=== PATIENT | female | born 1985 | race Caucasian/White ===

== ENCOUNTER 2020-01-13 02:19 | Inpatient (IN) ==
[2020-01-13] MEDS ORDERED: OXYTOCIN 30 UNITS/500 ML BAG IV PRN ×2 (03:03→18:34)
--- NOTE | 2020-01-13 03:06 | History & Physical Report ---
Date of Service January 13, 2020 Assessment & Plan (1) Two vessel umbilical cord, antepartum, single gestation: (2) PROM (premature rupture of membranes): Patient desires an unmedicated , noninterventional . gbs neg. Will allow expectant management for now. Fetus is overall category one. anticipate . History of Present Illness Primary Care Provider: NO PCP Patient is a 34yowf who presents to labor and delivery with complaints of gross rom at 11:40pm. Noting some contractions but not signficant. no lof/vb. +fm complicated by 2vc with normal growth scans and nsts, nl echo. labs--O-/ab-/ri/rprnr/hepb-/hiv-/gc/ct-/ declined cf/sma/genetics/ nl 16 week gtt, failed 28 week with nl 2 hr/gbs neg Allergies Allergy/AdvReac Type Severity Reaction Status Date / Time No Known Allergies Allergy Verified 01/11/20 13:04 Home Medications Home Medications Medication Instructions Recorded Confirmed Type 21-iron fu-folic acid 1 cap PO DAILY 06/16/19 01/11/20 History Patient History Medical History Abnormal biochemical finding on screening of mother Encounter for anatomic survey Varicella Surgical History S/P wisdom tooth extraction Family History Uncle Heart disease Grandfather (Paternal) Heart disease Mother Osteoporosis Jaundice Social History Preferred Language: [place] Communication Ability: Effective 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 Beliefs That Will Affect Care: None marital status: marital status details: Filiberto Taylor (33) [phone] Current Living Situation: Spouse current occupational status: employed Other Information That Helps Us Care for You: No Feels Safe at Home: Yes Safety Concerns: Afraid for Self Smoking Status: Never smoker Hx Alcohol Use: No Hx Substance Use: No OB History g1--current [employer] History no std, abnl paps Review of Systems as per Subjective / HPI Physical Exam Constitutional: WD/WN, vitals as above Gastrointestinal (Abdomen): soft, gravid, nt Psychiatric: A+Ox3, euthymic affect Genitourinary: sse--+f/n/small pool cx--1.5/80/-2 toco--q5-8min efm--145 with mod variability, small accels, rare variable Results & Data Vital Signs (Past 12 Hours) Vital Signs Pulse Resp BP 01/13/20 02:35 18 01/13/20 02:31 86 119/68 Code Status & VTE Plan VTE Prophylaxis Plan VTE Prophylaxis will be ordered: No Coding Level of Care Code None Diagnoses Two vessel umbilical cord, antepartum, single gestation O09.899 PROM (premature rupture of membranes) O42.90
[2020-01-13 03:47] LABS: Hematocrit (blood only) 37.3 % (37-47); Hemoglobin 12.7 g/dL (12.0-16.0); Mean Corpuscular Hemoglobin 29.7 pg (25-34); Mean Corpuscular Volume 87.1 fL (80-100); Mean Platelet Volume 10.6 fL (7.4-10.4); Platelet Count 278 K/uL (130-400); RDW Coefficient of Variation 13.6 % (11.5-14.5); RDW Standard Deviation 43.3 fL (36.4-46.3); Red Blood Count 4.28 M/uL (4.2-5.4); White Blood Count 12.64 K/uL (4.8-10.8)
--- NOTE | 2020-01-13 07:10 | Labor Progress Brief Note ---
Date of Service January 13, 2020 Subjective noting contractions seem to be getting stronger Assessment & Plan (1) PROM (premature rupture of membranes): fetus category one. As she is now 8 hours out from rupture, I discussed that it is my typical practice to start pitocin as have no idea when her contractions will set in. Discussed we like to get delivered within 24 hrs as risk of infection starts to increase. However, also discussed that there is no reason absolutely have to start at this point. She wishes continued expectant management. Will walk and then will sign out with dr. Khan. Physical Exam Constitutional: WD/WN, vitals as above Psychiatric: A+Ox3, euthymic affect Genitourinary: cx--deferred toco--irregular 4-8min efm--category one strip Results & Data Vital Signs (Past 12 Hours) Vital Signs Temp Pulse Resp BP 01/13/20 06:50 79 118/75 01/13/20 06:37 36.4 C L 8 L 01/13/20 04:49 36.5 C 18 01/13/20 02:35 18 01/13/20 02:31 36.5 C 86 18 119/68 Coding Level of Care Code None Diagnoses PROM (premature rupture of membranes) O42.90
--- NOTE | 2020-01-13 11:38 | Labor Progress Brief Note ---
Date of Service January 13, 2020 Patient had PROM at 11:30pm last night. Mild CTX at this stage. Per discussion at 9:00am, I had discussed augmentation. Disc reasons why, including reduction of infection. At this stage she wises to avoid intervention, but agrees to be checked at noon today and then make a decision Results & Data Vital Signs (Past 12 Hours) Vital Signs Temp Pulse Resp BP 01/13/20 11:08 78 114/78 01/13/20 11:00 97.5 F L 16 01/13/20 08:57 98.2 F 18 01/13/20 07:31 97.7 F 88 16 125/70 01/13/20 06:50 79 118/75 01/13/20 06:37 97.5 F L 8 L 01/13/20 04:49 97.7 F 18 01/13/20 02:35 18 01/13/20 02:31 97.7 F 86 18 119/68 Coding Level of Care Code None
[2020-01-13] MEDS: LACTATED RINGER'S 1,000 ML IV PRN ×3 (11:58→19:49)
--- NOTE | 2020-01-13 12:19 | Labor Progress Brief Note ---
Date of Service January 13, 2020 Patient placed on monitor after ambulating and there was the appearance of deep decels with CTX. Good variability, however Increased baseline as well. Deep decels with Cx still at 1.5cm 50%, not ideal. Discussed C/S as possibility Results & Data Vital Signs (Past 12 Hours) Vital Signs Temp Pulse Resp BP 01/13/20 11:08 78 114/78 01/13/20 11:00 97.5 F L 16 01/13/20 08:57 98.2 F 18 01/13/20 07:31 97.7 F 88 16 125/70 01/13/20 06:50 79 118/75 01/13/20 06:37 97.5 F L 8 L 01/13/20 04:49 97.7 F 18 01/13/20 02:35 18 01/13/20 02:31 97.7 F 86 18 119/68 Coding Level of Care Code None
--- NOTE | 2020-01-13 13:06 | Obstetrical Progress Note ---
Date of Service January 13, 2020 Subjective Decels cont with mild CTX. Discussed that Cx only 1cm and CTX would need to be much stronger. Pitocin not appropriate at this stage as still decelling. I have recommended C/S section. The patient was counseled to the nature of the procedure including alternatives such as labor. Risks were discussed including bleeding infection injury to bowel bladder ureter vessels and even baby. Deep Vein thrombosis, pulmonary embolus discussed. Breakdown of incision reviewed. Deep vein thrombosis pulmonary embolus hernia and failure of the incision to heal were discussed Patient verbalized understanding of this and was given ample time to ask questions Results & Data Vital Signs (Past 12 Hours) Vital Signs Temp Pulse Resp BP 01/13/20 11:08 78 114/78 01/13/20 11:00 97.5 F L 16 01/13/20 08:57 98.2 F 18 01/13/20 07:31 97.7 F 88 16 125/70 01/13/20 06:50 79 118/75 01/13/20 06:37 97.5 F L 8 L 01/13/20 04:49 97.7 F 18 01/13/20 02:35 18 01/13/20 02:31 97.7 F 86 18 119/68 PG Care Time/CCT Total # of Minutes Spent Total Time Spent with Patient: Total time spent is greater than 50% in coordination of care (as documented) at patient's floor/unit and/or counseling patient: Coding Level of Care Code None
[2020-01-13] MEDS ORDERED: CITRIC ACID/SODIUM CITRATE 15 ML UDC ONE (13:13)
[2020-01-13] MEDS ORDERED: MoRPHine SULFATE PF 1 MG/ML 10 ML AMP/VIAL ONE ×2 (13:14→19:51)
[2020-01-13] MEDS ORDERED: LACTATED RINGER'S 1,000 ML IV SCH ×2 (13:15→21:00)
--- NOTE | 2020-01-13 13:20 | Anesthesiology Consultation ---
Date of Service January 13, 2020 Assessment & Plan Chart Review Chart Review: Acceptable Risk for Surgery Consults Requested none History Surgery Operation Date: 01/13/20 13:20 Proposed Procedures p Section in LD - Krystina. Oniel Khan MD, FACOG Height/Weight Height: 5 ft 6 in Weight: 83.007 kg Allergies Allergy/AdvReac Type Severity Reaction Status Date / Time No Known Allergies Allergy Verified 01/11/20 13:04 Medications Home Medications Medication Instructions Recorded Confirmed Last Taken 21-iron fu-folic acid 1 cap PO DAILY 06/16/19 01/11/20 01/12/20 08:00 Active Medications Generic Name Dose Route Start Last Admin Trade Name Freq PRN Reason Stop Dose Admin Lactated Ringer's 1,000 mls @ 125 mls/hr 01/13/20 03:03 01/13/20 13:15 Lr IV 01/15/20 03:02 999 mls/hr .Q8H PRN Administration L&D Protocol Protocol Past Medical History Medical History Abnormal biochemical finding on screening of mother Encounter for anatomic survey Varicella Past Family History Family History Uncle Heart disease Grandfather (Paternal) Heart disease Mother Osteoporosis Jaundice Past Surgical History Surgical History S/P wisdom tooth extraction Social History Smoking Status: Never smoker Hx Alcohol Use: No Hx Substance Use: No Physical Exam Vital Signs Last Vital Signs Temp 36.4 C L 01/13/20 11:00 Pulse 78 01/13/20 11:08 Resp 16 01/13/20 11:00 BP 114/78 01/13/20 11:08 Testing Laboratory Results 01/13/20 03:37
--- NOTE | 2020-01-13 13:31 | Labor Progress Brief Note ---
Date of Service January 13, 2020 Patient had agreed to C/S, but after discussing with a friend on the phone she wishes to wait longer. I discussed that I recommend C/S now, but would of course accept her decisions. Disc the risks to the fetus in delayed delivery if tracing worsens. Results & Data Vital Signs (Past 12 Hours) Vital Signs Temp Pulse Resp BP 01/13/20 11:08 78 114/78 01/13/20 11:00 97.5 F L 16 01/13/20 08:57 98.2 F 18 01/13/20 07:31 97.7 F 88 16 125/70 01/13/20 06:50 79 118/75 01/13/20 06:37 97.5 F L 8 L 01/13/20 04:49 97.7 F 18 01/13/20 02:35 18 01/13/20 02:31 97.7 F 86 18 119/68 Coding Level of Care Code None
--- NOTE | 2020-01-13 13:37 | Labor Progress Brief Note ---
Date of Service January 13, 2020 Patient wishes to wait until 2:35 pm. She wishes to be checked at that time and if no change will accept C/S I discussed concerns with this, she does accept if tracing worsens that we can reevaluate sooner than 2:35 pm Results & Data Vital Signs (Past 12 Hours) Vital Signs Temp Pulse Resp BP 01/13/20 11:08 78 114/78 01/13/20 11:00 97.5 F L 16 01/13/20 08:57 98.2 F 18 01/13/20 07:31 97.7 F 88 16 125/70 01/13/20 06:50 79 118/75 01/13/20 06:37 97.5 F L 8 L 01/13/20 04:49 97.7 F 18 01/13/20 02:35 18 01/13/20 02:31 97.7 F 86 18 119/68 Coding Level of Care Code None
--- NOTE | 2020-01-13 15:05 | Labor Progress Brief Note ---
Date of Service January 13, 2020 Recheck still 1cm, 50% CTX mild and 8' apart. FHR is reactive at this stage (she really isn't in labor as CTX very mild). I am reticent to start Pitocin as mildly more intense CTX earlier resulted in substantial decels. I again have recommended C/S. I discussed why? 1. Risk of infection with prolonged PROM. 2. She is not in labor as no change in cervix, so I'm not sure if waiting has a real benefit at this stage. Patient only 1cm. 3. Worry over placental reserve as minimal CTX resulted in non-reassuring FHR tracing. I discussed the risks in waiting. Long conversation, she strongly prefers no intervention at this time. I discussed ultimately, she is the decider for her health and body in this situation, but that again I RECOMMEND C/S now. She declines and wishes to wait. We discussed that if the FHR tracing were to worsen quickly that the response to C/S is not always possible to be instantaneous as well. She stated understanding. Results & Data Vital Signs (Past 12 Hours) Vital Signs Temp Pulse Resp BP 01/13/20 14:45 98.1 F 16 01/13/20 13:10 98.4 F 18 01/13/20 11:08 78 114/78 01/13/20 11:00 97.5 F L 16 01/13/20 08:57 98.2 F 18 01/13/20 07:31 97.7 F 88 16 125/70 01/13/20 06:50 79 118/75 01/13/20 06:37 97.5 F L 8 L 01/13/20 04:49 97.7 F 18 Coding Level of Care Code None
--- NOTE | 2020-01-13 17:04 | Obstetrical Progress Note ---
Date of Service Note, patient still declines C/S and wishes no intervention at this time. I do not feel she is any form of active labor at this time. We discussed the pitfalls of pitocin as when she did have mildly more active CTX, decles were consistent. FHR reveals occasional variables. Pos accels I asked her what her hope/plan is, she states that she wants her body to be given a chance to do this on it's own. I discussed risks involved as per prior note in delayed intervention. She states she understands. January 13, 2020 Results & Data Vital Signs (Past 12 Hours) Vital Signs Temp Pulse Resp BP 01/13/20 15:04 130 H 120/73 01/13/20 14:45 98.1 F 16 01/13/20 13:10 98.4 F 18 01/13/20 11:08 78 114/78 01/13/20 11:00 97.5 F L 16 01/13/20 08:57 98.2 F 18 01/13/20 07:31 97.7 F 88 16 125/70 01/13/20 06:50 79 118/75 01/13/20 06:37 97.5 F L 8 L PG Care Time/CCT Total # of Minutes Spent Total Time Spent with Patient: Total time spent is greater than 50% in coordination of care (as documented) at patient's floor/unit and/or counseling patient: Coding Level of Care Code None
[2020-01-13] MEDS: CEFAZOLIN 2000MG 2,000 MG/15 ML SYR IV SCH ×2 (18:27→19:45)
--- NOTE | 2020-01-13 18:40 | Labor Progress Brief Note ---
Date of Service January 13, 2020 Patient now is accepting of pitocin. Tracing has improved. I have discussed my concerns with prolonged PROM with inadequate labor pattern. Pitocin had been discussed extensively earlier in the day before the problems with the tracing. I had been hesitant with the problems with the tracing at this time, I discussed that with pitocin that there may be a worsening of the FHR tracing. Patient wishes pitocin. We discussed (again) that we are outside the realm of recommended management from earlier and now (With a worrisome tracing with minimal CTX and unfavorable cervix and my previous and current recommendation of C/S) and that we would still do what we could to support her wishes. She has not accepted the earlier recommendations, but her tracing has improved and I am willing to try to work with her as best I can. Results & Data Vital Signs (Past 12 Hours) Vital Signs Temp Pulse Resp BP 01/13/20 17:10 100 H 134/74 01/13/20 15:04 130 H 120/73 01/13/20 14:45 98.1 F 16 01/13/20 13:10 98.4 F 18 01/13/20 11:08 78 114/78 01/13/20 11:00 97.5 F L 16 01/13/20 08:57 98.2 F 18 01/13/20 07:31 97.7 F 88 16 125/70 01/13/20 06:50 79 118/75 01/13/20 06:37 97.5 F L 8 L Coding Level of Care Code None
--- NOTE | 2020-01-13 19:33 | Labor Progress Brief Note ---
Date of Service January 13, 2020 after starting pitocin at 1mu deep, prolonged 5 minute decel, I have strongly recommended C/S, she agrees Cx 1cm still. Pitocin off Results & Data Vital Signs (Past 12 Hours) Vital Signs Temp Pulse Resp BP 01/13/20 19:09 97.7 F 112 H 18 131/83 01/13/20 17:10 100 H 134/74 01/13/20 17:05 98.2 F 01/13/20 15:04 130 H 120/73 01/13/20 14:45 98.1 F 16 01/13/20 13:10 98.4 F 18 01/13/20 11:08 78 114/78 01/13/20 11:00 97.5 F L 16 01/13/20 08:57 98.2 F 18 Coding Level of Care Code None
[2020-01-13] MEDS ORDERED: NALOXONE HCL 0.4 MG/1 ML VIAL/CARP IV PRN (19:48)
[2020-01-13] MEDS ORDERED: ONDANSETRON INJ 2 MG/ML 2 ML VIAL IV PRN (19:48)
[2020-01-13] MEDS ORDERED: PROMETHAZINE HCL 25 MG in SODIUM CHLORIDE 0.9% 50 ML IV PRN (19:48)
[2020-01-13] MEDS ORDERED: NALBUPHINE HCL INJ 10 MG/ML AMP IV PRN (19:48)
[2020-01-13] MEDS ORDERED: ePHEDrine sulfate 50 MG/ML AMP IV PRN (19:48)
[2020-01-13] MEDS ORDERED: LACTATED RINGER'S 500 ML IV PRN (19:48)
[2020-01-13] MEDS ORDERED: DiphenhydrAMINE HCL 50 MG/ML VIAL IV PRN (19:48)
[2020-01-13] MEDS ORDERED: KETOROLAC 30 MG/ML VIAL IV PRN (19:48)
[2020-01-13] MEDS ORDERED: NALOXONE HCL 1 MG in SODIUM CHLORIDE 0.9% 1000ML 1,000 ML IV PRN (19:48)
[2020-01-13] MEDS ORDERED: NALOXONE HCL 0.08 MG in SYRINGE 1.8 ML IV PRN (19:48)
[2020-01-13] MEDS ORDERED: HYDROmorphone INJ 0.5 MG/0.5 ML SYR IV PRN (19:48)
[2020-01-13] MEDS ORDERED: MoRPHine SULFATE PF 1 MG/ML 10 ML AMP/VIAL INT SPINAL ONE (19:48)
[2020-01-13] MEDS ORDERED: fentaNYL citrate 100 MCG/2 ML VIAL ONE (19:51)
[2020-01-13] MEDS ORDERED: NO NARCOTICS OR SEDATIVES SCH (20:00)
[2020-01-13] MEDS ORDERED: DC INTRASPINAL MORPHINE SCH (20:00)
[2020-01-13] MEDS ORDERED: SODIUM CHLORIDE 0.9% 1000ML 1,000 ML IV SCH (20:00)
[2020-01-13] MEDS ORDERED: CEFAZOLIN 2000MG 2,000 MG/15 ML SYR IV SCH (20:00)
[2020-01-13] MEDS ORDERED: PHENYLEPHRINE 100MCG/ML 5ML SYR ONE (20:06)
[2020-01-13] MEDS ORDERED: OXYTOCIN 10 UNITS/ML VIAL ONE (20:06)
--- NOTE | 2020-01-13 20:44 | Operative Report ---
PG Post Operative Report Pre & Post Diagnosis Operation Date: 01/13/20 13:20 Pre-Op Diagnosis: intolerance to labor Post-Op Diagnosis: intolerance to labor I identified the patient and participated in the time-out.: Yes Procedure Operation Date: 01/13/20 13:20 <No data on this case meets the specified criteria> Surgeon Elizabeth Khan MD, FACOG [employer] Nursing Estimated Blood Loss 500 Findings Consistent with Post-Op Diagnosis Specimens cord gases, blood Description of Procedure Regional anesthetic was given by anesthesia patient had a Blum catheter inserted by nursing patient was prepped and draped in supine position with a leftward tilt preoperative antibiotics were given timeout performed Pickups with teeth were used to test the skin site and it was found adequate for incision scalpel used to make a Pfannenstiel incision cutting down through subcutaneous fat through the fascia fascia was then dissected laterally with the curved Weir's fascia was released superiorly and inferiorly from the rectus muscles with the curved Weir scissors, rectus muscle split peritoneal cavity entered in a superior location. Opening enlarged to allow exposure bladder retractor placed Metzenbaums used to dissect away the bladder flap low segment transverse incision made on the uterus with scalpel entry was done bluntly with the copy center operator's finger hysterotomy incision extended with the copy center operator's finger in the usual fashion baby was delivered then by flexion of the head and pressure from the home based assistant on the abdomen mouth and then nares were suctioned baby was then delivered fully without difficulty without excessive force live vigorous cord clamped and cut cord gases obtained cord blood obtained placenta removed manually within ensured all placenta removed with a moist lap sponge uterus exteriorized IV Pitocin had been started by anesthesia and uterine tone improved. The uterus was closed in 2 layers first layer and 0 Monocryl running locked second layer 0 Monocryl nonlocked after generous irrigation and suction of the cul-de-sac and bladder flap regions hemostasis was excellent uterus was placed back in the peritoneal cavity and hemostasis was excellent rectus muscles were inspected and found to be dry fascia closed with 0 Vicryl subcutaneous fat closed with 3-0 Vicryl prior to this subcutaneous fat was irrigated skin closed with 4-0 subcuticular Monocryl incision Steri-Stripped urine was clear at the end of the procedure. Uterine and adnexal anatomy normal. 2 VC Cord somewhat by body but no nuchal I attest to the content of the Intraoperative Record and any orders documented therein. Any exceptions are noted below.
[2020-01-13] MEDS ORDERED: HYDROCORTISONE ACETATE 25 MG SUPP PR PRN (20:51)
[2020-01-13] MEDS ORDERED: MAGNESIUM HYDROXIDE SUSP 30 ML UDC PO PRN (20:51)
[2020-01-13] MEDS ORDERED: DIPHTHERIA/TETANUS/PERTUSSIS 0.5 ML SYR/VIAL IM ONE (20:51)
[2020-01-13] MEDS ORDERED: SUPERCREAM 0.870% 15 GM JAR EXT PRN (20:51)
[2020-01-13] MEDS ORDERED: BENZOCAINE 20% AER SPR 82.5 GM CAN EXT PRN (20:51)
[2020-01-13] MEDS ORDERED: SENNA 8.6 MG TAB PO PRN (20:51)
[2020-01-13 20:58] LABS: Base Excess Cord Arterial Bld -3.5 mEq/L (-9-1.8); CO2 Cord Arterial Blood 67 mmHg (39.1-73.5); HCO3 Cord Arterial Blood 26 mmol/L (19.7-28.5); pH Cord Arterial Blood 7.21 (7.1-7.38)
[2020-01-13 21:03] LABS: Base Excess Cord Venous Blood -2.9 mEq/L (-7.7-1.9); Cord Venous Blood HCO3 23 mmol/L (18.4-26.8); Cord Venous Blood PCO2 43 mmHg (30.4-57.2); Cord Venous Blood PO2 32 mmHg (14.1-43.3); Cord Venous Blood pH 7.35 (7.20-7.44)
[2020-01-13 21:05] LABS: Oxygen Sat Cord Arterial Blood < 60.0 % (<60); PO2 Cord Arterial Blood < 10 mmHg (4.1-31.7)
[2020-01-13] MEDS: OXYTOCIN 20 UNITS in LACTATED RINGER'S 1,000 ML IV SCH (21:13)
--- NOTE | 2020-01-13 21:57 | Anesthesiology Progress Note ---
Date of Service January 13, 2020 Anesthesia Post Procedure Vital Signs Vital Signs: Temp Pulse Resp BP Pulse Ox 01/13/20 21:53 77 100 01/13/20 21:48 83 99 01/13/20 21:47 83 18 108/62 01/13/20 21:43 76 98 01/13/20 21:40 80 18 110/56 L 01/13/20 21:38 90 99 01/13/20 21:33 82 100 01/13/20 21:28 88 100 01/13/20 21:27 97 H 18 118/64 01/13/20 21:23 87 100 01/13/20 21:18 83 100 01/13/20 21:17 36.3 C L 77 18 107/59 L 01/13/20 21:13 82 98 01/13/20 21:08 78 100 01/13/20 21:07 71 18 100/57 L 01/13/20 21:03 76 100 01/13/20 20:58 76 100 01/13/20 20:57 83 18 99/56 L 01/13/20 20:53 81 100 01/13/20 20:48 79 99 01/13/20 20:47 36.2 C L 75 18 99/57 L 01/13/20 19:44 95 H 100 01/13/20 19:39 92 H 100 01/13/20 19:09 36.5 C 112 H 18 131/83 01/13/20 17:10 100 H 134/74 01/13/20 17:05 36.8 C 01/13/20 15:04 130 H 120/73 01/13/20 14:45 36.7 C 16 01/13/20 13:10 36.9 C 18 01/13/20 11:08 78 114/78 01/13/20 11:00 36.4 C L 16 01/13/20 08:57 36.8 C 18 01/13/20 07:31 36.5 C 88 16 125/70 01/13/20 06:50 79 118/75 01/13/20 06:37 36.4 C L 8 L 01/13/20 04:49 36.5 C 18 01/13/20 02:35 18 01/13/20 02:31 36.5 C 86 18 119/68 Transfer of Care Handoff Completed per policy Notes Mental Status: alert / awake / arousable Patient Amnestic to Procedure: Yes Nausea / Vomiting: adequately controlled Pain: adequately controlled Airway Patency, RR, SpO2: stable & adequate BP & HR: stable & adequate Hydration State: stable & adequate Neuraxial Anesthesia: was administered and sensory block is resolving Anesthetic Complications: no major complications apparent and Pt Satisfied with anesthetic care
[2020-01-14] MEDS: OXYTOCIN 20 UNITS in LACTATED RINGER'S 1,000 ML IV SCH (05:25)
[2020-01-14] MEDS ORDERED: CITRIC ACID/SODIUM CITRATE 15 ML UDC PO SCH (06:00)
[2020-01-14 06:19] LABS: Basophils # (auto) 0.02 K/uL (0-0.2); Basophils % (auto) 0.1 %; Eosinophils # (auto) 0.04 K/uL (0-0.5); Eosinophils % (auto) 0.3 %; Hematocrit (blood only) 34.8 % (37-47); Hemoglobin 11.6 g/dL (12.0-16.0); Immature Granulocytes # (auto) 0.09 K/uL (0.00-0.02); Immature Granulocytes % (auto) 0.7 %; Lymphocytes # (auto) 1.28 K/uL (1.2-3.4); Lymphocytes % (auto) 9.4 %; Mean Corpuscular Hemoglobin 28.9 pg (25-34); Mean Corpuscular Hgb Conc 33.3 g/dL (32-36); Mean Corpuscular Volume 86.8 fL (80-100); Mean Platelet Volume 10.6 fL (7.4-10.4); Monocytes # (auto) 0.92 K/uL (0.11-0.59); Monocytes % (auto) 6.7 %; Neutrophils # (auto) 11.28 K/uL (1.4-6.5); Neutrophils % (auto) 82.8 %; Platelet Count 234 K/uL (130-400); RDW Coefficient of Variation 13.6 % (11.5-14.5); RDW Standard Deviation 43.4 fL (36.4-46.3); Red Blood Count 4.01 M/uL (4.2-5.4); White Blood Count 13.63 K/uL (4.8-10.8)
--- NOTE | 2020-01-14 07:45 | Obstetrical Progress Note ---
Date of Service January 14, 2020 POD 1 Assessment & Plan (1) state: POD #1 Cont current care Subjective Ambulation: limited ambulation Voiding: morris catheter in place Passing Gas:: No Diet Tolerance:: regular diet Lochia:: Small Feeding Type:: breast feeding Current Pain Level(1-10): 2 Physical Exam Constitutional WD/WN, vitals as above Respiratory normal respiratory effort, lungs clear to auscultation Cardiovascular RRR, no murmur, no edema Gastrointestinal (Abdomen) normal bowel sounds, soft, nontender, no hepatosplenomegaly (incision cdi, ext neg) Results & Data Vital Signs (Past 12 Hours) Vital Signs Temp Pulse Pulse Resp BP BP Pulse Ox 01/14/20 05:30 18 98 01/14/20 04:50 16 97 01/14/20 03:30 98.2 F 71 18 112/72 97 01/14/20 02:20 18 98 01/14/20 01:30 18 98 01/14/20 00:50 18 96 01/13/20 23:40 97.5 F L 66 18 118/73 99 01/13/20 23:10 97.5 F L 61 18 106/63 98 01/13/20 22:47 70 116/67 01/13/20 22:43 71 97 01/13/20 22:38 75 98 01/13/20 22:33 79 98 01/13/20 22:28 70 99 01/13/20 22:23 68 98 01/13/20 22:18 75 98 01/13/20 22:17 72 18 111/67 01/13/20 22:13 73 99 01/13/20 22:08 82 91 01/13/20 22:03 86 99 01/13/20 21:58 84 100 01/13/20 21:53 77 100 01/13/20 21:48 83 99 01/13/20 21:47 83 18 108/62 01/13/20 21:43 76 98 01/13/20 21:40 80 18 110/56 L 01/13/20 21:38 90 99 01/13/20 21:33 82 100 01/13/20 21:28 88 100 01/13/20 21:27 97 H 18 118/64 01/13/20 21:23 87 100 01/13/20 21:18 83 100 01/13/20 21:17 97.3 F L 77 18 107/59 L 01/13/20 21:13 82 98 01/13/20 21:08 78 100 01/13/20 21:07 71 18 100/57 L 01/13/20 21:03 76 100 01/13/20 20:58 76 100 01/13/20 20:57 83 18 99/56 L 01/13/20 20:53 81 100 01/13/20 20:48 79 99 01/13/20 20:47 97.2 F L 75 18 99/57 L
[2020-01-14] MEDS: PRENATAL VITAMIN 1 TAB PO SCH (10:18)
[2020-01-14] MEDS: FERROUS SULFATE 325 MG TAB PO SCH (10:18)
[2020-01-14] MEDS: DOCUSATE SODIUM 100 MG CAP PO SCH ×2 (10:18→20:38)
[2020-01-14] MEDS: SIMETHICONE 80 MG CHEW PO SCH ×4 (10:18→20:38)
--- NOTE | 2020-01-14 10:56 | Anesthesiology Progress Note ---
Date of Service January 14, 2020 Anesthesia Post Procedure Vital Signs Vital Signs: Temp Pulse Pulse Resp BP BP Pulse Ox 01/14/20 05:30 18 98 01/14/20 04:50 16 97 01/14/20 03:30 36.8 C 71 18 112/72 97 01/14/20 02:20 18 98 01/14/20 01:30 18 98 01/14/20 00:50 18 96 01/13/20 23:40 36.4 C L 66 18 118/73 99 01/13/20 23:10 36.4 C L 61 18 106/63 98 01/13/20 22:47 70 116/67 01/13/20 22:43 71 97 01/13/20 22:38 75 98 01/13/20 22:33 79 98 01/13/20 22:28 70 99 01/13/20 22:23 68 98 01/13/20 22:18 75 98 01/13/20 22:17 72 18 111/67 01/13/20 22:13 73 99 01/13/20 22:08 82 91 01/13/20 22:03 86 99 01/13/20 21:58 84 100 01/13/20 21:53 77 100 01/13/20 21:48 83 99 01/13/20 21:47 83 18 108/62 01/13/20 21:43 76 98 01/13/20 21:40 80 18 110/56 L 01/13/20 21:38 90 99 01/13/20 21:33 82 100 01/13/20 21:28 88 100 01/13/20 21:27 97 H 18 118/64 01/13/20 21:23 87 100 01/13/20 21:18 83 100 01/13/20 21:17 36.3 C L 77 18 107/59 L 01/13/20 21:13 82 98 01/13/20 21:08 78 100 01/13/20 21:07 71 18 100/57 L 01/13/20 21:03 76 100 01/13/20 20:58 76 100 01/13/20 20:57 83 18 99/56 L 01/13/20 20:53 81 100 01/13/20 20:48 79 99 01/13/20 20:47 36.2 C L 75 18 99/57 L 01/13/20 19:44 95 H 100 01/13/20 19:39 92 H 100 01/13/20 19:09 36.5 C 112 H 18 131/83 01/13/20 17:10 100 H 134/74 01/13/20 17:05 36.8 C 01/13/20 15:04 130 H 120/73 01/13/20 14:45 36.7 C 16 01/13/20 13:10 36.9 C 18 01/13/20 11:08 78 114/78 01/13/20 11:00 36.4 C L 16 Pain Intensity Abdomen: Pain Intensity: 4 Transfer of Care Handoff Completed per policy Notes Mental Status: alert / awake / arousable and participated in evaluation Nausea / Vomiting: adequately controlled Pain: adequately controlled Airway Patency, RR, SpO2: stable & adequate BP & HR: stable & adequate Hydration State: stable & adequate Neuraxial Anesthesia: was administered and sensory block resolved Anesthetic Complications: no major complications apparent and Pt Satisfied with anesthetic care Notes: Patient denies headache this morning. Has been up walking without weakness or residual numbness. Patient encouraged to contact anesthesia for any concerns or new headache
[2020-01-14] MEDS ORDERED: OXYCODONE/ACETAMINOPHEN 5mg/325mg TAB PO PRN (13:48)
[2020-01-14] MEDS ORDERED: ONDANSETRON INJ 2 MG/ML 2 ML VIAL IV PRN (13:48)
[2020-01-14] MEDS ORDERED: KETOROLAC 30 MG/ML VIAL IV PRN (13:48)
[2020-01-14] MEDS ORDERED: DiphenhydrAMINE HCL 50 MG/ML VIAL IV PRN (13:48)
[2020-01-14] MEDS ORDERED: PROMETHAZINE HCL 25 MG in SODIUM CHLORIDE 0.9% 50 ML IV PRN (13:48)
[2020-01-14] MEDS: IBUPROFEN 600 MG TAB PO PRN ×2 (14:33→20:38)
[2020-01-14] MEDS ORDERED: bisacodyL 5 MG TABEC PO SCH (20:00)
[2020-01-15 06:37] LABS: Hematocrit (blood only) 33.5 % (37-47); Hemoglobin 11.1 g/dL (12.0-16.0)
--- NOTE | 2020-01-15 06:47 | Obstetrical Progress Note ---
Date of Service January 15, 2020 Assessment & Plan (1) state: satisfactory /post-op progress continue current care plan Day #:: 2 Subjective Ambulation: ambulating normally Voiding: no voiding problems Passing Gas:: Yes Diet Tolerance:: regular diet Lochia:: Small Feeding Type:: breast feeding Review of Systems All systems reviewed & are unremarkable except as noted in HPI & below Physical Exam Constitutional WD/WN, vitals as above Gastrointestinal (Abdomen) Inspection/Auscultation: + abdominal surgical incision (intact & dry) Psychiatric A+Ox3, euthymic affect Genitourinary OB Exam Abdomen: + fundal height Fundus: + firm and + relation to umbilicus ( below u) Results & Data Vital Signs (Past 12 Hours) Vital Signs Temp Pulse Resp BP Pulse Ox 01/15/20 00:00 97.5 F L 99 H 18 112/70 01/14/20 20:45 97.9 F 100 H 16 104/71 97
[2020-01-15] MEDS: SIMETHICONE 80 MG CHEW PO SCH ×5 (07:54→20:55)
[2020-01-15] MEDS: PRENATAL VITAMIN 1 TAB PO SCH (07:54)
[2020-01-15] MEDS: DOCUSATE SODIUM 100 MG CAP PO SCH ×3 (07:55→20:55)
[2020-01-15] MEDS: IBUPROFEN 600 MG TAB PO PRN ×2 (07:55→17:03)
[2020-01-15] MEDS: FERROUS SULFATE 325 MG TAB PO SCH (09:05)
[2020-01-15] MEDS ORDERED: bisacodyL 10 MG SUPP PR PRN (20:46)
--- NOTE | 2020-01-16 06:30 | Obstetrical Progress Note ---
Date of Service January 16, 2020 Assessment & Plan (1) state: Recovered well, POD#3 . successfullly at time of this exam. Discharge instructions reviewed and questions answered. Subjective Ambulation: ambulating normally Voiding: no voiding problems Passing Gas:: Yes Diet Tolerance:: regular diet Lochia:: Small Feeding Type:: breast feeding Physical Exam Constitutional WD/WN, vitals as above Eyes PERRL, conjunctivae normal, anicteric sclerae Neck normal visual inspection Respiratory normal respiratory effort and able to speak in complete sentences; no respiratory distress and no labored breathing Cardiovascular Rate/Rhythm: regular rate and regular rhythm Extremities: no edema Chest (Breasts) Chest: normal inspection of chest Gastrointestinal (Abdomen) Inspection/Auscultation: abdomen normal to inspection and + abdominal surgical incision (C/d/i with steri strips) Soft, postgravid Psychiatric A+Ox3, euthymic affect Genitourinary OB Exam Abdomen: + fundal height Fundus: + firm and + relation to umbilicus (fundus just below umbilicus); not tender Results & Data Vital Signs (Past 12 Hours) Vital Signs Temp Pulse Resp BP Pulse Ox 01/15/20 23:10 97.3 F L 80 16 117/71 98 01/15/20 20:15 97.9 F 93 H 18 117/79
[2020-01-16] MEDS: DOCUSATE SODIUM 100 MG CAP PO SCH ×2 (08:38→21:04)
[2020-01-16] MEDS: FERROUS SULFATE 325 MG TAB PO SCH (08:38)
[2020-01-16] MEDS: SIMETHICONE 80 MG CHEW PO SCH ×3 (08:38→21:04)
[2020-01-16] MEDS: PRENATAL VITAMIN 1 TAB PO SCH (08:39)
[2020-01-16] MEDS: IBUPROFEN 600 MG TAB PO PRN ×2 (08:40→21:42)
--- NOTE | 2020-01-17 07:03 | Obstetrical Progress Note ---
Date of Service January 17, 2020 Assessment & Plan (1) state: Patient stayed an additional day due to baby needing to gain more weight. now ready for discharge and pt plans home today. Subjective Ambulation: ambulating normally Voiding: no voiding problems Passing Gas:: Yes Diet Tolerance:: regular diet Lochia:: Small Feeding Type:: breast feeding Physical Exam Constitutional WD/WN, vitals as above Eyes PERRL, conjunctivae normal, anicteric sclerae Neck normal visual inspection Respiratory normal respiratory effort and able to speak in complete sentences; no res piratory distress and no labored breathing Cardiovascular Rate/Rhythm: regular rate and regular rhythm Extremities: no edema Chest (Breasts) Chest: normal inspection of chest Gastrointestinal (Abdomen) Inspection/Auscultation: abdomen normal to inspection and + abdominal surgical incision (c/d/i steri strips) Soft, postgravid Psychiatric A+Ox3, euthymic affect Genitourinary OB Exam Abdomen: + fundal height Fundus: + firm and + relation to umbilicus (fundus just below umbilicus); not tender Results & Data Vital Signs (Past 12 Hours) Vital Signs Temp Pulse Resp BP Pulse Ox 01/16/20 23:30 97.7 F 92 H 18 125/77 99 01/16/20 19:55 97.7 F 78 18 112/75 97
[2020-01-17 07:55] VITALS: BP 124/80; PULSE 82; TEMP 97.5; O2SAT 98
[2020-01-17] MEDS: SIMETHICONE 80 MG CHEW PO SCH ×3 (09:05→13:13)
[2020-01-17] MEDS: PRENATAL VITAMIN 1 TAB PO SCH (09:05)
[2020-01-17] MEDS: DOCUSATE SODIUM 100 MG CAP PO SCH (09:05)
[2020-01-17] MEDS: IBUPROFEN 600 MG TAB PO PRN (09:05)
[2020-01-17] MEDS: FERROUS SULFATE 325 MG TAB PO SCH (09:05)
--- NOTE | 2020-01-19 08:09 | Discharge Summary ---
Date of Service January 19, 2020 Admission HPI Per Admitting Provider Patient is a 34yowf who presents to labor and delivery with complaints of gross rom at 11:40pm. Noting some contractions but not signficant. no lof/vb. +fm complicated by 2vc with normal growth scans and nsts, nl echo. labs--O-/ab-/ri/rprnr/hepb-/hiv-/gc/ct-/ declined cf/sma/genetics/ nl 16 week gtt, failed 28 week with nl 2 hr/gbs neg Admission Exam (Per Admitting) Constitutional WD/WN, vitals as above Respiratory normal respiratory effort, lungs clear to auscultation Cardiovascular RRR, no murmur, no edema Gastrointestinal (Abdomen) normal bowel sounds, soft, nontender, no hepatosplenomegaly (incision cdi, ext neg) Discharge Data Consultations 01/13/20 03:03 Consult Anesthesiology Stat Procedures Performed Operation Date: 01/13/20 13:20 Actual Procedures p Section in LD delivery of live female child at 2018 - Elizabeth Khan MD, [facility] Hospital Course (1) state: Patient stayed an additional day due to baby needing to gain more weight. INfant now ready for discharge and pt plans home today. Postoperative from section patient meets discharge criteria as she is ambulating well tolerating an oral diet has minimal bleeding and no extremity pain. Discharge instructions were reviewed and prescriptions were sent to her pharmacy of choice patient advised to call with any concerns and follow-up in the office discussed Coding Level of Care Code None Diagnoses state Z39.2
== END 2020-01-17 14:30 | disposition home or self-care (01) | DRG 788 ==
LOC: OPB 02:19 → 4S1 02:23 → 4S2 23:23